=== PATIENT | female | born 1945 | race Caucasian/White ===

== ENCOUNTER 2020-02-10 16:30 | Inpatient (IN) | payer MEDICARE ==
[~2020-02-10 16:30] MED LIST: HUMAN PROTHROMBIN COMPLX 500 UNIT/16 ML VIAL IV ONE
[2020-02-10] MEDS ORDERED: SODIUM CHLORIDE 0.9% 1,000 ML IV ONE (17:26)
[2020-02-10] MEDS ORDERED: Kcentra PER PHARMACY 1 EACH MISC MISCELLANE STA (17:27)
--- NOTE | 2020-02-10 17:35 | ED ---
General Adult HPI - General Chief complaint: Vaginal Bleeding Stated complaint: Hemorrage Time Seen by Provider: 02/10/20 16:41 Source: patient, EMS, RN notes reviewed, old records reviewed Mode of arrival: EMS Limitations: altered mental status - History of Present Illness Initial comments: Patient is a pleasant 74-year-old female presenting to the emergency Department with vaginal bleeding. Onset of symptoms was 3-4 days ago. Patient is on Eliquis secondary to history of atrial fibrillation. Patient did feel weak and fatigued. Patient did go to [facility] today. Patient was found to have anemia with hemoglobin of 5 and was given 2 units of blood. They noted no active bleeding there however patient states she has been bleeding the whole time. Patient has been having vaginal clots. Patient does feel better following bloodtransfusion. No rectal bleeding. No hematuria. - Related Data Allergies Allergy/AdvReac Type Severity Reaction Status Date / Time No Known Allergies Allergy Verified 02/10/20 17:17 Review of Systems ROS Statement: Those systems with pertinent positive or pertinent negative responses have been documented in the HPI. ROS Other: All systems not noted in ROS Statement are negative. Constitutional: Denies: fever Eyes: Denies: eye pain ENT: Denies: ear pain Respiratory: Denies: cough Cardiovascular: Denies: chest pain Endocrine: Denies: fatigue Gastrointestinal: Denies: abdominal pain Genitourinary: Reports: as per HPI. Denies: dysuria Musculoskeletal: Denies: back pain Skin: Denies: rash Neurological: Denies: weakness Past Medical History Past Medical History: Atrial Fibrillation, Hyperlipidemia History of Any Multi-Drug Resistant Organisms: None Reported Past Surgical History: Tubal Ligation Past Psychological History: No Psychological Hx Reported Smoking Status: Never smoker Past Alcohol Use History: None Reported Past Drug Use History: None Reported General Exam Limitations: altered mental status General appearance: alert, in no apparent distress Head exam: Present: normocephalic Eye exam: Present: normal appearance Neck exam: Present: normal inspection Respiratory exam: Present: normal lung sounds bilaterally Cardiovascular Exam: Present: regular rate, normal rhythm GI/Abdominal exam: Present: soft. Absent: tenderness Rectal exam: Present: normal inspection. Absent: bloody stool External exam: Present: other (there is a large clotextruding from the vagina.) Extremities exam: Present: normal inspection Neurological exam: Present: alert Psychiatric exam: Present: normal affect, normal mood Skin exam: Present: normal color Course Vital Signs 02/10/20 02/10/20 02/10/20 17:07 17:10 17:30 Temperature 98.7 F Pulse Rate 78 72 Respiratory 18 18 Rate Blood Pressure 99/35 99/35 93/41 O2 Sat by Pulse 88 L 97 99 Oximetry 02/10/20 02/10/20 18:00 18:30 Temperature Pulse Rate 75 Respiratory 18 Rate Blood Pressure 93/39 89/38 O2 Sat by Pulse 100 98 Oximetry Medical Decision Making - Medical Decision Making Patient reevaluated and resting comfortably in bed. Systolic blood pressure now 100. Patient and family updated. Hemoglobin reported at 5.7 despite recently having blood transfusion. kcentra appears to now just finished infusing.case was discussed in detail with Dr. jimbo gannon, who will admit covered for hospital call. Case also discussed with Dr. Mixon, who will consult for critical care. COLLAR PACKER will also be placed manager of employee relations. - Lab Data Result diagrams: 02/10/20 18:30 02/10/20 18:30 Lab Results 02/10/20 02/10/20 02/10/20 Range/Units 18:30 18:30 18:30 WBC 6.4 (3.8-10.6) k/uL RBC 1.94 L (3.80-5.40) m/uL MCV 87.2 (80.0-100.0) fL MCH 28.8 (25.0-35.0) pg MCHC 33.0 (31.0-37.0) g/dL RDW 15.8 H (11.5-15.5) % Plt Count 51 L (150-450) k/uL MPV 13.2 Hypochromasia Slight Poikilocytosis Slight Sodium 138 (137-145) mmol/L Potassium 3.4 L (3.5-5.1) mmol/L Chloride 110 H (98-107) mmol/L Carbon Dioxide 25 (22-30) mmol/L Anion Gap 3 mmol/L BUN 34 H (7-17) mg/dL Creatinine 1.25 H (0.52-1.04) mg/dL Est GFR (CKD-EPI)AfAm 49 (>60 ml/min/1.73 sqM) Est GFR (CKD-EPI)NonAf 42 (>60 ml/min/1.73 sqM) Glucose 99 (74-99) mg/dL Calcium 6.6 L (8.4-10.2) mg/dL Total Bilirubin 0.5 (0.2-1.3) mg/dL AST 28 (14-36) U/L ALT 10 (4-34) U/L Alkaline Phosphatase 42 (38-126) U/L Total Protein 4.4 L (6.3-8.2) g/dL Albumin 1.7 L (3.5-5.0) g/dL Blood Type A Positive Blood Type Confirm Blood Type Recheck Bld Type Recheck Status Antibody Screen NEGATIVE Crossmatch See Detail Spec Expiration Date 02/10/20 02/10/20 Range/Units 18:35 18:48 WBC (3.8-10.6) k/uL RBC (3.80-5.40) m/uL MCV (80.0-100.0) fL MCH (25.0-35.0) pg MCHC (31.0-37.0) g/dL RDW (11.5-15.5) % Plt Count (150-450) k/uL MPV Hypochromasia Poikilocytosis Sodium (137-145) mmol/L Potassium (3.5-5.1) mmol/L Chloride (98-107) mmol/L Carbon Dioxide (22-30) mmol/L Anion Gap mmol/L BUN (7-17) mg/dL Creatinine (0.52-1.04) mg/dL Est GFR (CKD-EPI)AfAm (>60 ml/min/1.73 sqM) Est GFR (CKD-EPI)NonAf (>60 ml/min/1.73 sqM) Glucose (74-99) mg/dL Calcium (8.4-10.2) mg/dL Total Bilirubin (0.2-1.3) mg/dL AST (14-36) U/L ALT (4-34) U/L Alkaline Phosphatase (38-126) U/L Total Protein (6.3-8.2) g/dL Albumin (3.5-5.0) g/dL Blood Type Blood Type Confirm A Positive Blood Type Recheck No Previous Record Bld Type Recheck Status CABO Indicated Antibody Screen Crossmatch Spec Expiration Date 02/13/2020 1784 Critical Care Time Critical Care Time: Yes Total Critical Care Time: 34 Disposition Clinical Impression: Vaginal bleeding, Coagulopathy, Symptomatic anemia Disposition: ADMITTED IP TO THIS [facility] Condition: Critical Is patient prescribed a controlled substance at d/c from ED?: No Referrals: None,Stated [REFERRING] - 1-2 days Decision Time: 20:01
[2020-02-10] MEDS ORDERED: EMPTY BAG 1 BAG with HUMAN PROTHROMBIN COMPLX 1,668 UNIT IV ONE (17:45)
--- NOTE | 2020-02-10 18:28 | US ---
EXAMINATION TYPE: US pelvic complete DATE OF EXAM: 02/10/2020 COMPARISON: NONE CLINICAL HISTORY: pain. Heavy vaginal bleeding. Low hemaglobin. No prior pelvic sx per patient. TECHNIQUE: Transabdominal (TA). Transabdominal sonographic images of the pelvis were acquired. 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 Uterus: Anteverted Enlarged. Myometrium not well visualized due to endometrial thickening 2. Endometrium: Thickened and heterogenous extending to vaginal cuff 3. Right Ovary: Obscured by overlying bowel gas 4. Left Ovary: Obscured by overlying bowel gas 5. Bilateral Adnexa: wnl 6. Posterior cul-de-sac: no free fluid Cervix- Enlarged IMPRESSION: Enlarged uterus. Endometrium not well seen. Endometrial tumor is possible. No adnexal mass.
[2020-02-10 18:56] LABS: Albumin 1.7 g/dL (3.5-5.0); Calcium 6.6 mg/dL (8.4-10.2); Potassium 3.4 mmol/L (3.5-5.1); Total Bilirubin 0.5 mg/dL (0.2-1.3); Total Protein 4.4 g/dL (6.3-8.2)
[2020-02-10 18:57] LABS: Hypochromasia Slight; MCH 28.8 pg (25.0-35.0); MCV 87.2 fL (80.0-100.0); Mean Platelet Volume 13.2; Platelet Count 51 k/uL (150-450); Poikilocytosis Slight; RBC 1.94 m/uL (3.80-5.40); RDW 15.8 % (11.5-15.5); WBC 6.4 k/uL (3.8-10.6)
[2020-02-10 19:08] LABS: HCT 16.9 % (34.0-46.0); HGB 5.6 gm/dL (11.4-16.0)
[2020-02-10] MEDS ORDERED: NALOXONE 0.4 MG/ML 1 ML VIAL IV PRN (20:04)
[2020-02-10 20:32] LABS: INR 1.1 (<1.2); Partial Thromboplastin Time 31.9 sec (22.0-30.0); Prothrombin Time 11.5 sec (9.0-12.0)
[2020-02-10 20:42] LABS: Band Neutrophils % 1 %; Lymphocytes # (M) 1.28 k/uL (1.0-4.8); Metamyelocytes # (M) 0.06 k/uL (0); Metamyelocytes % 1 %; Monocytes # (M) 0.32 k/uL (0-1.0); Myelocytes # (M) 0.06 k/uL (0); Myelocytes % 1 %; Neutrophils % (M) 74 %; Nucleated Red Blood Cells 0 /100 WBC (0-0); Polychromasia Present; Total Cells Counted 200
[2020-02-11 00:29] LABS: Glucose,Whole Blood 89 mg/dL (75-99)
[2020-02-11] MEDS ORDERED: ACETAMINOPHEN TAB 325 MG TAB PO PRN (01:25)
--- NOTE | 2020-02-11 02:06 | P.HPIM ---
History of Present Illness H&P Date: 02/10/20 Chief Complaint: vaginal bleeding 74 year old female with lupus, arthritis , and afib on eliquis patient comes in due to 3 day history of vaginal bleeding, with large blood clots. this is new and never happened before, she went to [facility] and found to have Hgb of 5. and was given 1 unit of blood . she recalls being in the hospital about 4 weeks ago for pneumonia and was not told about any issues with her hemoglobin. she denies any history of bleeding, she has been chronically on Eliquis for afib patient daughter noticed that her mom does not feel ok over the past 3 days, and has been getting worse, she looked very pale to her today, and was having an ep isode of near syncope. patient otherwise, denies any SOB or chest pain , denies any exertional dyspnea, dizziness or palpitations. in the ED she was found to have low hgb of 5.6 pelvic US showed enlarged uterus with possible endometrial tumor her blood pressure was low, but claimed that her blood pressure always runs low . Review of Systems Pertinent positives as noted in HPI. All other systems were reviewed and are negative Past Medical History Past Medical History: Atrial Fibrillation, Hyperlipidemia History of Any Multi-Drug Resistant Organisms: None Reported Past Surgical History: Tubal Ligation Past Psychological History: No Psychological Hx Reported Smoking Status: Never smoker Past Alcohol Use History: None Reported Past Drug Use History: None Reported Medications and Allergies Home Medications Medication Instructions Recorded Confirmed Type Acetaminophen [Tylenol] 325 mg PO DAILY PRN 02/10/20 02/10/20 History Amiodarone HCl [Pacerone] 200 mg PO BID 02/10/20 02/10/20 History Apixaban [Eliquis] 5 mg PO BID 02/10/20 02/10/20 History Metoprolol Tartrate 25 mg PO BID 02/10/20 02/10/20 History Pantoprazole Sodium [Protonix] 40 mg PO DAILY 02/10/20 02/10/20 History Simvastatin [Zocor] 40 mg PO HS 02/10/20 02/10/20 History Spironolactone 25 mg PO DAILY 02/10/20 02/10/20 History Sucralfate [Carafate] 1 gm PO Q12H 02/10/20 02/10/20 History predniSONE 10 mg PO DAILY 02/10/20 02/10/20 History Allergies Allergy/AdvReac Type Severity Reaction Status Date / Time No Known Allergies Allergy Verified 02/10/20 21:14 Physical Exam Vitals: Vital Signs Temp Pulse Resp BP Pulse Ox 02/10/20 18:30 75 18 89/38 98 02/10/20 18:00 93/39 100 02/10/20 17:30 72 18 93/41 99 02/10/20 17:10 98.7 F 78 18 99/35 97 02/10/20 17:07 99/35 88 L Intake and Output 02/10/20 02/10/20 02/10/20 06:59 14:59 22:59 Other: Weight 68.039 kg Constitutional: No acute distress, conversant, pleasant Eyes: Anicteric sclerae, moist conjunctiva, clinical pallor Pupils equal round reactive to light ENMT: NC/AT Oropharynx clear, no erythema, no exudates Neck: Supple, FROM, no masses, or JVD No carotid bruits No thyromegaly Lungs: Clear to auscultation Clear to percussion Normal respiratory effort, no accessory muscle use Cardiovascular: Heart regular in rate and rhythm, No murmurs, gallops, or rubs No peripheral edema Abdominal: Soft Nontender, no guarding, rebound or rigidity Abdomen moving with respiration Normoactive bowel sounds No hepatomegaly, No splenomegaly No palpable mass No abdominal wall hernia noted Skin: skin feels puffy to the touch Normal temperature, tone, texture, turgor No induration No subcutaneous nodules No rash, lesions No ulcers Extremities: No digital cyanosis No clubbing Pedal pulses intact and symmetrical Radial pulses intact and symmetrical No calf tenderness Psychiatric: Alert and oriented to person, place and time Appropriate affect fair judgement Neuro Muscles Strength 4/5 in all 4 extremities Sensation to light touch grossly present throughout Cranial nerves II-XII grossly intact No focal sensory deficits Lymphatics: no palpable cervical or supraclavicular , or inguinal lymph nodes Results CBC & Chem 7: 02/10/20 18:30 02/10/20 18:30 Labs: Abnormal Lab Results - Last 24 Hours (Table) 02/10/20 02/10/20 Range/Units 18:30 18:30 RBC 1.94 L (3.80-5.40) m/uL RDW 15.8 H (11.5-15.5) % Plt Count 51 L (150-450) k/uL Potassium 3.4 L (3.5-5.1) mmol/L Chloride 110 H (98-107) mmol/L BUN 34 H (7-17) mg/dL Creatinine 1.25 H (0.52-1.04) mg/dL Calcium 6.6 L (8.4-10.2) mg/dL Total Protein 4.4 L (6.3-8.2) g/dL Albumin 1.7 L (3.5-5.0) g/dL Assessment and Plan Assessment: symptomatic anemia due to vaginal blood loss monitor hemoglobin 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 afib on eliquis resume amiodarone , and metoplrolol hold eliquis CODE STATUS:full code DVT prophylaxis: mechanical due to vaginal bleeding Discussed with: Patient, ER Anticipated length of stay > than [address]: home A total of 75 minutes was spent on the care of this complex patient more than 50% of the time was spent in counseling and care coordination.
[2020-02-11] MEDS: SODIUM CHLORIDE 0.9% 1,000 ML IV SCH ×3 (02:38→12:01)
[2020-02-11 04:20] LABS: HCT 23.8 % (34.0-46.0); MCH 30.1 pg (25.0-35.0); MCHC 33.5 g/dL (31.0-37.0); MCV 89.6 fL (80.0-100.0); Mean Platelet Volume 12.5; RBC 2.66 m/uL (3.80-5.40); RDW 14.8 % (11.5-15.5); WBC 7.5 k/uL (3.8-10.6)
[2020-02-11 04:27] LABS: Platelet Count 31 k/uL (150-450)
[2020-02-11 04:35] LABS: Albumin 1.5 g/dL (3.5-5.0); Magnesium 1.6 mg/dL (1.6-2.3); Potassium 3.3 mmol/L (3.5-5.1); Total Bilirubin 0.5 mg/dL (0.2-1.3); Total Protein 3.8 g/dL (6.3-8.2)
[2020-02-11 04:56] LABS: Calcium 6.3 mg/dL (8.4-10.2)
[2020-02-11] MEDS ORDERED: Potassium Replacement Protocol 1 EACH MISC MISCELLANE PRN (04:57)
[2020-02-11 05:02] LABS: Band Neutrophils % 5 %; Lymphocytes # (M) 0.75 k/uL (1.0-4.8); Metamyelocytes # (M) 0.08 k/uL (0); Metamyelocytes % 1 %; Neutrophils % (M) 80 %; Nucleated Red Blood Cells 0 /100 WBC (0-0); Total Cells Counted 200
[2020-02-11] MEDS ORDERED: SUCRALFATE 1 GM TAB PO SCH (06:00)
[2020-02-11] MEDS: POTASSIUM CHLORIDE 20 MEQ in WATER FOR INJECTION 1 100ML.BAG IVPB SCH ×2 (06:11→09:27)
[2020-02-11] MEDS ORDERED: Magnesium Replacement Protocol 1 EACH MISC MISCELLANE PRN (08:12)
[2020-02-11 08:27] VITALS: TEMP 97.8
[2020-02-11] MEDS ORDERED: predniSONE 10 MG TAB PO SCH (09:00)
[2020-02-11] MEDS ORDERED: AMIODARONE 200 MG TAB PO SCH (09:00)
[2020-02-11] MEDS ORDERED: METOPROLOL TARTRATE 25 MG TAB PO SCH (09:00)
[2020-02-11] MEDS ORDERED: PANTOPRAZOLE 40 MG/10 ML VIAL IV SCH (09:00)
[2020-02-11] MEDS ORDERED: SPIRONOLACTONE 25 MG TAB PO SCH (09:00)
[2020-02-11] MEDS: MAGNESIUM SULFATE-D5W PMX 1 GM in DEXTROSE/WATER 1 100ML.BAG IVPB SCH ×2 (09:55→11:57)
[2020-02-11] MEDS ORDERED: POTASSIUM CHLORIDE 20 MEQ in WATER FOR INJECTION 1 100ML.BAG IVPB STA (10:03)
[2020-02-11] MEDS ORDERED: CALCIUM GLUCONATE 1 GM in SODIUM CHLORIDE 0.9% 100 ML IVPB ONE (10:05)
--- NOTE | 2020-02-11 10:17 | P.OBCN ---
History of Present Illness Consult date: 02/11/20 Requesting physician: Jonathon Dunlap Reason for consult: other (vaginal bleeding ) Chief complaint: vaginal bleeding, anemia History of present illness: This is a 74 yo female that presented to the ED last night with c/o heavy vaginal bleeding, and anemia. HgB noted to be 5.6 and she was given 3 units of PRBCs, hgb devaughn to 8 this am. she continues to have bleeding but it has slowed. She did have an US last evening revealing an enlarged uterus 14 x 5 x 4 with a thickened endometrial lining that was noted to be heterogeneous and extending to the lower uterine segment, suspected endometrial tumor. Patient states she was placed on eliquis 3-4 days ago the bleeding began and progressively got heavy in nature. Upon seeing the patient this morning the patient's nurse did note some fresh sarah gical scars and patient states she had some cardiac procedures done at [facility]. We are obtaining records at this time. Review of Systems Constitutional: Denies chills, Denies fatigue, Denies fever Ears, nose, mouth and throat: Denies headache Cardiovascular: Reports leg edema Respiratory: Denies dyspnea Gastrointestinal: Denies nausea, Denies vomiting Genitourinary: Reports as per HPI, Reports abnormal vaginal bleeding Menstruation: Reports postmenopausal Past Medical History Past Medical History: Atrial Fibrillation, Hyperlipidemia, Hypertension History of Any Multi-Drug Resistant Organisms: None Reported Past Surgical History: Tubal Ligation Additional Past Surgical History / Comment(s): bilateral thorocentesis december 2019, pericardiocentesis december 2019 Past Psychological History: No Psychological Hx Reported Smoking Status: Never smoker Past Alcohol Use History: None Reported Past Drug Use History: None Reported Medications and Allergies Home Medications Medication Instructions Recorded Confirmed Type Acetaminophen [Tylenol] 325 mg PO DAILY PRN 02/10/20 02/10/20 History Amiodarone HCl [Pacerone] 200 mg PO BID 02/10/20 02/10/20 History Apixaban [Eliquis] 5 mg PO BID 02/10/20 02/10/20 History Metoprolol Tartrate 25 mg PO BID 02/10/20 02/10/20 History Pantoprazole Sodium [Protonix] 40 mg PO DAILY 02/10/20 02/10/20 History Simvastatin [Zocor] 40 mg PO HS 02/10/20 02/10/20 History Spironolactone 25 mg PO DAILY 02/10/20 02/10/20 History Sucralfate [Carafate] 1 gm PO Q12H 02/10/20 02/10/20 History predniSONE 10 mg PO DAILY 02/10/20 02/10/20 History Allergies Allergy/AdvReac Type Severity Reaction Status Date / Time No Known Allergies Allergy Verified 02/10/20 21:14 Exam Osteopathic Statement: *. No significant issues noted on an osteopathic structural exam other than those noted in the History and Physical/Consult. Vital Signs Temp Pulse Resp BP Pulse Ox 02/11/20 09:00 72 13 91/47 96 02/11/20 08:00 97.8 F 66 26 H 99/49 97 02/11/20 07:00 70 17 95/46 95 02/11/20 06:00 72 19 102/46 95 02/11/20 05:00 68 21 104/49 99 02/11/20 04:00 97.4 F L 70 19 93/45 96 02/11/20 03:00 71 14 106/49 97 02/11/20 02:00 71 20 108/46 98 02/11/20 01:16 97.5 F L 75 12 108/72 98 02/11/20 01:00 67 27 H 107/55 98 02/11/20 00:00 97.5 F L 74 20 108/49 98 02/10/20 23:40 98.2 F 74 18 108/49 99 02/10/20 23:25 98.1 F 66 18 104/46 99 02/10/20 23:19 69 18 99 02/10/20 23:10 98.2 F 70 18 99/47 99 02/10/20 23:00 98.2 F 69 18 102/51 99 02/10/20 22:58 98.2 F 72 18 102/51 99 02/10/20 21:35 98.2 F 71 18 107/43 100 02/10/20 21:05 98.0 F 71 18 98/52 96 02/10/20 20:55 98.0 F 72 18 96/47 02/10/20 19:00 97/62 99 02/10/20 18:50 97/62 98 02/10/20 18:30 75 18 89/38 98 02/10/20 18:00 93/39 100 02/10/20 17:30 72 18 93/41 99 02/10/20 17:10 98.7 F 78 18 99/35 97 02/10/20 17:07 99/35 88 L Intake and Output 02/10/20 02/11/20 02/11/20 22:59 06:59 14:59 Intake Total 310 1220 520 Output Total 700 200 Balance 310 520 320 Intake: IV 910 520 Sodium Chloride 0.9% 1, 910 520 000 ml @ 130 mls/hr IV . Q7H42M [facility] Rx#:[id number] Blood Product 310 310 Rc As-1 Unit 310 [id number] Rc As-1 Unit 310 [id number] Output: Urine 700 200 Other: Voiding Method Indwelling Catheter Weight 68.039 kg 72.2 kg Targeted physical exam was performed on this date in general this is a elderly female in no acute distress, breathing is nonlabored, abdomen is soft, on inspection of the patient's external vagina scant bleeding is noted with red vaginal bleeding noted in patient's diaper. No clots are appreciated. Results Result Diagrams: 02/11/20 03:45 02/11/20 03:45 Abnormal Lab Results - Last 24 Hours (Table) 02/10/20 02/10/20 02/10/20 Range/Units 18:30 18:30 18:30 RBC 1.94 L (3.80-5.40) m/uL Hgb 5.6 L* (11.4-16.0) gm/dL Hct 16.9 L* (34.0-46.0) % RDW 15.8 H (11.5-15.5) % Plt Count 51 L (150-450) k/uL Lymphocytes # (Manual) (1.0-4.8) k/uL Metamyelocytes # (Man) 0.06 H (0) k/uL Myelocytes # (Manual) 0.06 H (0) k/uL APTT (22.0-30.0) sec Potassium 3.4 L (3.5-5.1) mmol/L Chloride 110 H (98-107) mmol/L BUN 34 H (7-17) mg/dL Creatinine 1.25 H (0.52-1.04) mg/dL Calcium 6.6 L (8.4-10.2) mg/dL Total Protein 4.4 L (6.3-8.2) g/dL Albumin 1.7 L (3.5-5.0) g/dL Crossmatch See Detail 02/10/20 02/11/20 02/11/20 Range/Units 20:02 03:45 03:45 RBC 2.66 L (3.80-5.40) m/uL Hgb 8.0 L D (11.4-16.0) gm/dL Hct 23.8 L (34.0-46.0) % RDW (11.5-15.5) % Plt Count 31 L (150-450) k/uL Lymphocytes # (Manual) 0.75 L (1.0-4.8) k/uL Metamyelocytes # (Man) 0.08 H (0) k/uL Myelocytes # (Manual) (0) k/uL APTT 31.9 H (22.0-30.0) sec Potassium 3.3 L (3.5-5.1) mmol/L Chloride 113 H (98-107) mmol/L BUN 33 H (7-17) mg/dL Creatinine 1.17 H (0.52-1.04) mg/dL Calcium 6.3 L* (8.4-10.2) mg/dL Total Protein 3.8 L (6.3-8.2) g/dL Albumin 1.5 L (3.5-5.0) g/dL Crossmatch Assessment and Plan (1) Endometrial mass Current Visit: Yes Status: Acute Code(s): N94.89 - OTH COND ASSOC W FEMALE GENITAL ORGANS AND MENSTRUAL CYCLE SNOMED Code(s): 88032441069161 (2) Symptomatic anemia Current Visit: Yes Status: Acute Code(s): D64.9 - ANEMIA, UNSPECIFIED SNOMED Code(s): 734726871 (3) Vaginal bleeding Current Visit: Yes Status: Acute Code(s): N93.9 - ABNORMAL UTERINE AND VAGINAL BLEEDING, UNSPECIFIED SNOMED Code(s): 245400554 Plan: This 74-year-old female admitted last evening with tympanic anemia of 5.6 status post 3 units of packed red blood cells and improvement of hemoglobin to 8 this morning. Patient's vaginal bleeding has slowed and Eliquis has been discontinu ed. Ultrasound is reviewed with the patient noting a thickened endometrial lining with questionable endometrial mass/tumor. Patient's labs this morning are reviewed and her platelets are low at 31. Given this finding I am unable to attempt endometrial biopsy. I do suspect patient has a endometrial cancer. I feel given the ultrasound findings and suspicious for endometrial cancer she would be best served by a CONTINUOUS IMPROVEMENT COORDINATOR oncologist.
--- NOTE | 2020-02-11 11:23 | P.DS ---
Providers Date of admission: 02/10/20 20:05 Expected date of discharge: 02/11/20 Attending physician: Yuliet Peres DO Consults: 02/10/20 20:04 Consult Physician Urgent Consulting Provider: Aditi Alejandra Consult Reason/Comments: vaginal bleeding Do you want consulting provider notified?: Yes 02/10/20 20:05 Consult Physician Stat Consulting Provider: Servando Rivera Consult Reason/Comments: critical care Do you want consulting provider notified?: Already Contacted Primary care physician: Physician Nonstaff Hospital Course: Discharge Diagnosis: Symptomiatic anemia Coagulopathy due to eliquis with reversal Vaginal bleeding 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 fib and recent starting of Eliquis, lupus, arthritis, and recent hospitalization at [facility] for pneumonia with pericardiocentesis and thoracentesis who was transferred from [facility] emergency room due to vaginal bleeding and anemia. She had presented due to over all not feeling well and dizziness with syncope.There she was noted to have a HgB of 5, Lactic acid 3.7, plt 62, INR 1.32 with pt 13.2. CXR there was consistent with CHF and possible pleurla effusion. She received 2 units of pRBC at [facility]. On arrival in [place] HgB was 5.4 and she recieved another unit of blood. She also received Kcentra. She was admitted to the ICU. She had a pelivc US which showed enlarged ednometrial stripe with externsion into the vagianl canal, concerning for tumor. Dr. Alejandra from PIPE SMOKING MACHINE OFFBEARER evaluated the patient but was unable to preform an endometrial biopsy due to platelets of 31. She felt the patient would be best served by Oil Field Equipment Mechanic/Onc. Dr. Meyers at [facility] graciously accepted the patient. I also updated Dr. Rocha LADDER OPERATOR/ONC who agreeed with transfer. Review of records from [facility] reviewed and case discussed with daughter she [facility] after a stay for PNA requiring paracardiocentesis. During that stay she was diagnosed with Lupus. She was also found to have A. fib and was started on eliquis. She had vaginal bleeding during that stay which resolved spontaneously. Patient seen and examined at bedside. No chest pain, light headedness, dizziness, or shortness of breath. Vital signs reviewed and stable. General: non toxic, no distress, appears at stated age Derm: warm, dry Head: atraumatic, normocephalic, symmetric Eyes: EOMI, no lid lag, anicteric sclera Mouth: no lip lesion, mucus membranes moist Cardiovascular: S1S2 irreg, no murmur, positive posterior tibial pulse bilateral, Lungs: CTA bilateral, no rhonchi, no rales , no accessory muscle use Abdominal: soft, nontender to palpation, no guarding, no appreciable organomegaly Ext: no gross muscle atrophy, 3+ edema, no contractures Neuro: CN II-XI grossly intact, no focal neuro deficits Psych: Alert, oriented, appropriate affect External vaginal: bright red blood from labia major with blood also noted in breif. A total of 35 minutes of time were spent preparing this complex discharge summary . Patient Condition at Discharge: Serious Plan - Discharge Summary Discharge Rx Participant: No New Discharge Prescriptions: No Action Simvastatin [Zocor] 40 mg PO HS predniSONE 10 mg PO DAILY Sucralfate [Carafate] 1 gm PO Q12H Spironolactone 25 mg PO DAILY Pantoprazole Sodium [Protonix] 40 mg PO DAILY Metoprolol Tartrate 25 mg PO BID Apixaban [Eliquis] 5 mg PO BID Amiodarone HCl [Pacerone] 200 mg PO BID Acetaminophen [Tylenol] 325 mg PO DAILY PRN PRN Reason: Fever And/ Or Pain Discharge Medication List Acetaminophen [Tylenol] 325 mg PO DAILY PRN 02/10/20 [History] Amiodarone HCl [Pacerone] 200 mg PO BID 02/10/20 [History] Apixaban [Eliquis] 5 mg PO BID 02/10/20 [History] Metoprolol Tartrate 25 mg PO BID 02/10/20 [History] Pantoprazole Sodium [Protonix] 40 mg PO DAILY 02/10/20 [History] Simvastatin [Zocor] 40 mg PO HS 02/10/20 [History] Spironolactone 25 mg PO DAILY 02/10/20 [History] Sucralfate [Carafate] 1 gm PO Q12H 02/10/20 [History] predniSONE 10 mg PO DAILY 02/10/20 [History] Follow up Appointment(s)/Referral(s): None,Stated [REFERRING] - 1-2 days
[2020-02-11 11:35] LABS: HCT 21.7 % (34.0-46.0); HGB 7.2 gm/dL (11.4-16.0); Hypochromasia Slight; MCH 30.1 pg (25.0-35.0); MCHC 33.3 g/dL (31.0-37.0); MCV 90.2 fL (80.0-100.0); Mean Platelet Volume 12.8; Poikilocytosis Slight; RBC 2.41 m/uL (3.80-5.40); RDW 15.5 % (11.5-15.5); WBC 8.5 k/uL (3.8-10.6)
[2020-02-11 11:52] LABS: Platelet Count 38 k/uL (150-450)
--- NOTE | 2020-02-11 12:31 | CONS ---
CONSULTATION PULMONARY/CRITICAL CARE CONSULTATION: REASON FOR CONSULTATION: ICU management. A 74-year-old female who comes into the emergency room on February 09 at 16:30 by EMS for vaginal bleeding. She presented to the emergency room with vaginal bleeding. It has been going on for 3 or 4 days. She recently was started on Eliquis for atrial fibrillation. The patient felt very weak and fatigued. She went to [facility] and was apparently transferred down here. Her hemoglobin was 5. She was given a total of 3 units of PRBCs. She was seen by [employer], I believe Dr. Alejandra, who thought that she should be transferred to her home hospital, which is [facility] in [place]. Her accepting physician there was Dr. Traore. Apparently all her workup was there. Dr. Alejandra thinks that the bleeding is from cancer. Anyway, the patient is currently on 3 L nasal cannula and saline at 130 mL an hour. As I mentioned, she received 3 units of PRBCs. Her hemoglobin which was 5, is now 8 mg/dL. ALLERGIES: Denied. HOME MEDICATIONS: Include prednisone, Tylenol, simvastatin, Carafate, Aldactone, Protonix, metoprolol, amiodarone, and Eliquis. MEDICAL HISTORY: Atrial fibrillation and hyperlipidemia. She also has a history of gastroesophageal reflux disease. SURGICAL HISTORY: Includes tubal ligation. SOCIAL HISTORY: Negative for tobacco, alcohol or illicit drug use. FAMILY HISTORY: Noncontributory. REVIEW OF SYSTEMS: CONSTITUTIONAL: Weakness and fatigue. NEUROLOGIC: Negative. HEENT: Negative. CARDIOVASCULAR: Atrial fibrillation. PULMONARY: Shortness of breath. GI: Negative. : Vaginal bleeding. RHEUMATOLOGIC: Negative. IMMUNOLOGIC: Negative. ENDOCRINOLOGIC: Negative. PHYSICAL EXAMINATION: VITAL SIGNS: Current vital signs show temperature 97.8, heart rate 66 and irregular, respiratory rate 19, blood pressure 97/53, mean 67 and O2 saturation of 96%. That is on 3 L. HEENT: Examination is grossly unremarkable. NECK: Supple. Full range of motion. No adenopathy. Neck veins are flat. CARDIOVASCULAR: Examination reveals regular rhythm and rate. Heart rate 66. She is in sinus rhythm. No murmur. LUNGS: Reveal clear breath sounds. No wheezes, rhonchi, or crackles. ABDOMEN: Soft. Bowel sounds are heard. EXTREMITIES: Intact. No cyanosis, clubbing, or significant edema. SKIN: Without rash. NEUROLOGIC: Examination is brief but nonfocal. LABS: Reviewed. White count 7.5, hemoglobin 8, hematocrit 23.8, platelet count 31,000. PT 11.5, INR 1.1, PTT is 31.9. Sodium 139, potassium 3.3, chloride is 113, CO2 22, anion gap is 4. BUN and creatinine were 33 and 1.17. Calcium 6.3. The rest of the labs look okay. Albumin is only 1.5. Microbiology is negative. IMAGING: Pelvic ultrasound done on February 09 shows enlarged uterus, endometrial tumor is apparently possible. CURRENT MEDICATIONS: Reviewed. She is currently on Tylenol, Cordarone, Lipitor, magnesium replacement, metoprolol, Narcan, Protonix, potassium replacement, and prednisone. She is also getting her saline IV and Carafate. ASSESSMENT: 1. Vaginal bleeding, which may be related to endometrial tumor. 2. Anemia secondary to vaginal bleeding, status post 3 units of PRBCs. 3. History of recently diagnosed atrial fibrillation, recently started on Eliquis. 4. History of hyperlipidemia. 5. Prior history of tubal ligation. PLANS: The patient will be transferred to [facility]. The accepting physician is Dr. Traore. The patient is currently getting 3 L. She is getting saline at 130 mL an hour. She has received 3 units of PRBCs. Her hemoglobin is up to 8. I did speak to Dr. Alejandra. Dr. Peres is discharging the patient. MMODL / IJN: [id number] /
[2020-02-11 13:03] LABS: Lymphocytes # (M) 0.26 k/uL (1.0-4.8); Monocytes # (M) 0.77 k/uL (0-1.0); Neutrophils # (M) 7.48 k/uL (1.3-7.7); Neutrophils % (M) 88 %; Nucleated Red Blood Cells 0 /100 WBC (0-0); Total Cells Counted 100
[2020-02-11 13:13] VITALS: BP 95/48; PULSE 64; RESP 25
[2020-02-11] MEDS ORDERED: ATORVASTATIN 20 MG TAB PO SCH (21:00)
[2020-02-11] MEDS ORDERED: METOPROLOL TARTRATE 12.5 MG TAB PO SCH (21:00)
== END 2020-02-11 15:10 | disposition short-term general hospital (02) | DRG 686 ==
LOC: EC 16:30 → 2SICU 20:05
PROVIDERS: ADMIT Internal Medicine; ATTEND Internal Medicine
PROC: 30233N1 Transfusion of Nonautologous Red Blood Cells into Peripheral Vein, Percutaneous Approach (ICD-10-PCS; principal; 2020-02-10)
DX: D49.59 Neoplasm of unspecified behavior of other genitourinary organ (principal); U07.1 COVID-19; D62 Acute posthemorrhagic anemia; N17.9 Acute kidney failure, unspecified; D69.6 Thrombocytopenia, unspecified; I48.0 Paroxysmal atrial fibrillation; R79.1 Abnormal coagulation profile; E78.5 Hyperlipidemia, unspecified; E83.42 Hypomagnesemia; E87.6 Hypokalemia; I10 Essential (primary) hypertension; M19.90 Unspecified osteoarthritis, unspecified site; N85.2 Hypertrophy of uterus; N93.9 Abnormal uterine and vaginal bleeding, unspecified; K21.9 Gastro-esophageal reflux disease without esophagitis; R55 Syncope and collapse; Z79.01 Long term (current) use of anticoagulants; Z79.899 Other long term (current) drug therapy; Z98.51 Tubal ligation status; Z87.01 Personal history of pneumonia (recurrent)
CPT/HCPCS: 36415; 36430; 76856; 80053; 83735; 85025; 85610; 85730; 86850; 86900; 86901; 86920; 87635; 96361; 96365; 99291